=== PATIENT | female | born 1960 | race Caucasian/White ===

== ENCOUNTER 2020-05-29 14:23 | Emergency (ER) | payer OTHER ==
--- NOTE | 2020-05-29 15:29 | EDM.PDOC ---
ED HPI GENERAL MEDICAL PROBLEM - General Chief Complaint: Cardiovascular Problem Stated Complaint: HEART PAIN Source of Information: Reports: Patient History Limitations: Reports: No Limitations - History of Present Illness Onset: Today Onset Date: 05/29/20 Onset Time: 11:00 Duration: Intermittent Location: Reports: Chest (left side of chest wall), Radiates to (no radiation, localized) Quality: Reports: Ache Improves with: Reports: None Worsens with: Reports: None Context: Reports: Activity (was working at home yesterday and today when she developed the pain ithe lower right clavicular area) Associated Symptoms: Reports: No Other Symptoms Treatments [employer]LECT[employer]ER: Reports: Cold Therapy - Related Data Allergies Allergy/AdvReac Type Severity Reaction Status Date / Time metronidazole [From Flagyl] Allergy Cannot Verified 05/29/20 15:41 Remember Home Meds: Home Meds Cholecalciferol (Vitamin D3) [Vitamin D] 5,000 unit PO DAILY 05/29/20 [History] Diclofenac Sodium 100 gm TP BID #100 gel..gram. 05/29/20 [Rx] Ketorolac [Toradol] 10 mg PO Q6H PRN #15 tab 05/29/20 [Rx] Lactobacillus Acidophilus [Probiotic] 1 each PO DAILY 05/29/20 [History] Progesterone, Micronized [Progesterone] 100 mg PO DAILY 05/29/20 [History] Thyroid [[place] Thyroid] 60 mg PO DAILY 05/29/20 [History] Vitamin B Complex 1 each PO DAILY 05/29/20 [History] Past Medical History - Past Health History Medical/Surgical History: Denies Medical/Surgical History ED ROS GENERAL - Review of Systems Review Of Systems: See Below Constitutional: Reports: No Symptoms HEENT: Reports: No Symptoms Respiratory: Reports: No Symptoms. Denies: Pleuritic Chest Pain Cardiovascular: Reports: No Symptoms. Denies: Chest Pain, Dyspnea on Exertion, Edema, Lightheadedness, Orthopnea, Palpitations, PND, Syncope Endocrine: Reports: No Symptoms GI/Abdominal: Reports: No Symptoms Musculoskeletal: Reports: Muscle Pain (chest wall muscle pain) Skin: Reports: No Symptoms Neurological: Reports: No Symptoms Psychiatric: Reports: No Symptoms Hematologic/Lymphatic: Reports: No Symptoms ED EXAM, GENERAL - Physical Exam Exam: See Below Exam Limited By: No Limitations General Appearance: Alert, WD/WN, No Apparent Distress Eye Exam: Bilateral Eye: EOMI Ears: Normal TMs Ear Exam: Bilateral Ear: Canal Normal Nose: Normal Inspection Throat/Mouth: Normal Oropharynx Head: Atraumatic, Normocephalic Neck: Normal Inspection, Supple, Non-Tender Respiratory/Chest: Lungs Clear, Other (reproducible chest wall pain on the area below the left clavicle) Cardiovascular: Normal Peripheral Pulses, Regular Rate, Rhythm Peripheral Pulses: 2+: Dorsalis Pedis (L), Dorsalis Pedis (R) GI/Abdominal: Soft, Non-Tender Back Exam: Normal Inspection, Full Range of Motion Extremities: Normal Inspection, Normal Range of Motion, Non-Tender Neurological: Alert, Oriented, CN II-XII Intact Psychiatric: Normal Affect, Normal Mood Skin Exam: Warm, Dry, Intact #1 Interpretation EKG Date: 05/29/20 Time: 14:22 Rhythm: NSR Rate (Beats/Min): 83 [place]: Normal P-Wave: Present QRS: Other (non specific interventricular conduction delay) ST-T: Normal QT: Normal Comparison: NA - No Prior EKG Course - Vital Signs Last Recorded V/S: Last Vital Signs Temp 36.4 C 05/29/20 14:23 Pulse 84 05/29/20 14:23 Resp 16 05/29/20 14:23 BP 135/81 05/29/20 14:23 Pulse Ox 98 05/29/20 14:23 - Orders/Labs/Meds Orders: Active Orders 24 hr Category Date Time Status EKG Documentation Completion [RC] ASDIRECTED Care 05/29/20 14:47 Active Chest 1V Frontal [CR] Stat Exams 05/29/20 14:47 Taken EKG 12 Lead [EK] Routine Ther 05/29/20 14:47 Ordered Labs: Laboratory Tests 05/29/20 05/29/20 05/29/20 Range/Units 14:55 14:55 14:55 WBC 6.2 (3.0-10.3) x10-3/uL RBC 4.14 (3.60-5.20) x10(6)uL Hgb 13.0 (11.4-15.5) g/dL Hct 39.3 (34.2-48.2) % MCV 94.9 (76.7-100.5) fL MCH 31.3 (23.9-33.9) pg MCHC 33.0 (31.9-34.8) g/dL RDW 13.4 (12.3-16.5) % Plt Count 380 (151-488) x10(3)uL MPV 7.8 (7.1-12.4) fL Neut % (Auto) 65.3 (30.8-76.2) % Lymph % (Auto) 24.7 (18.4-52.1) % [place] % (Auto) 5.6 (4.4-15.7) % Eos % (Auto) 3.4 (0.6-8.1) % Baso % (Auto) 1.0 (0.2-1.5) % Neut # (Auto) 4.0 (1.5-6.3) x10-3/uL Lymph # (Auto) 1.5 (1.0-4.4) x10-3/uL [place] # (Auto) 0.3 (0.3-1.0) x10-3/uL Eos # (Auto) 0.2 (0.0-0.8) x10-3/uL Baso # (Auto) 0.1 (0.0-0.1) x10-3/uL PT 10.3 (9.0-11.1) sec INR 0.95 L (1.00-1.24) Sodium 144 (135-145) mmol/L Potassium 3.8 (3.5-5.3) mmol/L Chloride 105 (100-110) mmol/L Carbon Dioxide 24 (21-32) mmol/L BUN 16 (7-18) mg/dL Creatinine 0.8 (0.55-1.02) mg/dL Est Cr Clr Drug Dosing TNP Estimated GFR (MDRD) > 60 (>60) BUN/Creatinine Ratio 20.0 (9-20) Glucose 108 (80-116) mg/dL Calcium 8.2 L (8.6-10.2) mg/dL Total Bilirubin 0.2 (0.1-1.3) mg/dL AST 22 (5-25) IU/L ALT 36 (12-36) U/L Alkaline Phosphatase 62 (56-112) IU/L Troponin I (4.0-60.3) pg/mL Total Protein 6.0 (6.0-8.0) g/dL Albumin 3.7 (3.2-4.6) g/dL Globulin 2.3 g/dL Albumin/Globulin Ratio 1.6 /12/09 Range/Units 14:55 WBC (3.0-10.3) x10-3/uL RBC (3.60-5.20) x10(6)uL Hgb (11.4-15.5) g/dL Hct (34.2-48.2) % MCV (76.7-100.5) fL MCH (23.9-33.9) pg MCHC (31.9-34.8) g/dL RDW (12.3-16.5) % Plt Count (151-488) x10(3)uL MPV (7.1-12.4) fL Neut % (Auto) (30.8-76.2) % Lymph % (Auto) (18.4-52.1) % [place] % (Auto) (4.4-15.7) % Eos % (Auto) (0.6-8.1) % Baso % (Auto) (0.2-1.5) % Neut # (Auto) (1.5-6.3) x10-3/uL Lymph # (Auto) (1.0-4.4) x10-3/uL [place] # (Auto) (0.3-1.0) x10-3/uL Eos # (Auto) (0.0-0.8) x10-3/uL Baso # (Auto) (0.0-0.1) x10-3/uL PT (9.0-11.1) sec INR (1.00-1.24) Sodium (135-145) mmol/L Potassium (3.5-5.3) mmol/L Chloride (100-110) mmol/L Carbon Dioxide (21-32) mmol/L BUN (7-18) mg/dL Creatinine (0.55-1.02) mg/dL Est Cr Clr Drug Dosing Estimated GFR (MDRD) (>60) BUN/Creatinine Ratio (9-20) Glucose (80-116) mg/dL Calcium (8.6-10.2) mg/dL Total Bilirubin (0.1-1.3) mg/dL AST (5-25) IU/L ALT (12-36) U/L Alkaline Phosphatase (56-112) IU/L Troponin I < 4.0 L (4.0-60.3) pg/mL Total Protein (6.0-8.0) g/dL Albumin (3.2-4.6) g/dL Globulin g/dL Albumin/Globulin Ratio Meds: Medications Discontinued Medications Generic Name Dose Route Start Last Admin Trade Name Freq PRN Reason Stop Dose Admin Ketorolac Tromethamine 30 mg 05/29/20 15:38 05/29/20 15:48 Ketorolac 30 Mg/Ml Sdv IM 05/29/20 15:39 30 mg ONETIME ONE Administration - Re-Assessments/Exams Free Text/Narrative Re-Assessment/Exam: 05/29/20 16:34 pt had labs EKG and chest XRAy done : all normal Given a dose of Toradol and pain resolved Departure - Departure Disposition: Home, Self-Care 01 Condition: Good Clinical Impression: Atypical chest pain, Chest wall muscle strain, Elevated BP without diagnosis of hypertension Prescriptions: Diclofenac Sodium 100 gm TP BID #100 gel..gram. Ketorolac [Toradol] 10 mg PO Q6H PRN #15 tab PRN Reason: Pain (Moderate 4-6) Instructions: Nonspecific Chest Pain, Adult, [id number], Muscle Strain, [id number], Preventing Hypertension Referrals: Ana Castro PA [Primary Care Provider] - Forms: ED Department Discharge Additional Instructions: 1) make an appointment to follow up with your PCP It would be a good idea to get a stress test if you have not had one recently 2) eat less salt to keep blood pressure well controlled 3) Warm compress to affected are of chest 3 times daily for 10 mins as needed 4) call with any concerns Sepsis Event Note (ED) - Focused Exam Vital Signs: Vital Signs Temp Pulse Resp BP Pulse Ox 05/29/20 14:23 36.4 C 84 16 135/81 98 - My Orders Last 24 Hours: My Active Orders 05/29/20 14:47 EKG Documentation Completion [RC] ASDIRECTED Chest 1V Frontal [CR] Stat EKG 12 Lead [EK] Routine - Assessment/Plan Last 24 Hours: My Active Orders 05/29/20 14:47 EKG Documentation Completion [RC] ASDIRECTED Chest 1V Frontal [CR] Stat EKG 12 Lead [EK] Routine
[2020-05-29] MEDS ORDERED: Ketorolac 30 MG/ML SDV IM ONE (15:38)
--- NOTE | 2020-05-31 11:50 | CR ---
INDICATION: Chest pain. CHEST, ONE VIEW: An AP portable upright view of the chest was obtained 05/29/20 - no comparisons. Overlying EKG leads are noted. The heart is normal in size and shape. Mediastinum and bony thorax are unremarkable. Somewhat flattened diaphragm leaf on the right raises question of obstructive airway disease but should be correlated clinically. An active infiltrate or effusion was not identified. IMPRESSION: No acute process. MTDD
== END 2020-05-29 16:48 | disposition home or self-care (01) ==
LOC: FB.ED 14:23
DX: S29.011A Strain of muscle and tendon of front wall of thorax, initial encounter (principal); R03.0 Elevated blood-pressure reading, without diagnosis of hypertension; Z88.1 Allergy status to other antibiotic agents; Z79.899 Other long term (current) drug therapy; X58.XXXA Exposure to other specified factors, initial encounter
CPT/HCPCS: 36415; 71045; 80053; 84484; 85025; 85610; 93005; 96372; 99285; J1885

== ENCOUNTER 2022-10-14 17:08 | Emergency (ER) | payer OTHER ==
[2022-10-14] MEDS ORDERED: Diphtheria,Pertussis(Acell),Tetanus Vaccine 0.5 ML Syringe IM ONE (18:18)
== END 2022-10-14 18:40 | disposition home or self-care (01) ==
LOC: FB.ED 17:08
DX: S82.64XA Nondisplaced fracture of lateral malleolus of right fibula, initial encounter for closed fracture (principal); S92.024A Nondisplaced fracture of anterior process of right calcaneus, initial encounter for closed fracture; S80.212A Abrasion, left knee, initial encounter; E03.9 Hypothyroidism, unspecified; Z88.1 Allergy status to other antibiotic agents; Z23 Encounter for immunization; Z79.899 Other long term (current) drug therapy; X50.1XXA Overexertion from prolonged static or awkward postures, initial encounter; Y93.01 Activity, walking, marching and hiking
CPT/HCPCS: 73610-RT; 73630-RT; 90471; 90715; 99283-25

== ENCOUNTER 2024-12-18 22:27 | Emergency (ER) | payer OTHER ==
[2024-12-18 22:58] LABS: BASOPHILS ABSOLUTE AUTO 0.1 x10-3/uL (0.0-0.1); BASOPHILS PERCENT AUTO 1.0 % (0.2-1.5); EOSINOPHILS ABSOLUTE AUTO 0.1 x10-3/uL (0.0-0.8); EOSINOPHILS PERCENT AUTO 2.5 % (0.6-8.1); LYMPHOCYTES ABSOLUTE AUTO 1.9 x10-3/uL (1.0-4.4); LYMPHOCYTES PERCENT AUTO 31.9 % (18.4-52.1); MEAN PLATELET VOLUME 7.7 fL (7.1-12.4); MONOCYTES ABSOLUTE AUTO 0.3 x10-3/uL (0.3-1.0); MONOCYTES PERCENT AUTO 5.4 % (4.4-15.7); NEUTROPHILS ABSOLUTE AUTO 3.4 x10-3/uL (1.5-6.3); NEUTROPHILS PERCENT AUTO 59.2 % (30.8-76.2); PLATELET COUNT,PLT 393 x10(3)uL (151-488); RED BLOOD CELL COUNT 4.34 x10(6)uL (3.60-5.20); RED CELL DISTRIBUTION WIDTH 14.1 % (12.3-16.5); WHITE BLOOD CELL COUNT,WBC 5.8 x10-3/uL (3.0-10.3)
[2024-12-18 23:15] LABS: BLOOD UREA NITROGEN,BUN 20 mg/dL (7-18); CARBON DIOXIDE,CO2 27 mmol/L (21-32); CHLORIDE,CL 107 mmol/L (100-110); CREATININE 0.7 mg/dL (0.55-1.02); EST CRCL DRUG DOSING (CG) 75.01 mL/min; ESTIMATED GFR 96 mL/min (>60); GLUCOSE RANDOM 93 mg/dL (80-116); POTASSIUM,K 3.7 mmol/L (3.5-5.3); SODIUM,NA 143 mmol/L (135-145)
== END 2024-12-18 23:40 | disposition home or self-care (01) ==
LOC: FB.ED 22:27
DX: R07.89 Other chest pain (principal); I10 Essential (primary) hypertension; Z90.49 Acquired absence of other specified parts of digestive tract; Z88.8 Allergy status to other drugs, medicaments and biological substances; Z79.899 Other long term (current) drug therapy
CPT/HCPCS: 36415; 71045; 80048; 84484; 85025; 85379; 93005; 93010; 99283; 99285